=== PATIENT | female | born 1995 | race Caucasian/White ===

== ENCOUNTER → 2018-11-16 | Outpatient (CLI) | payer OTHER ==
[~2018-11-16] MED LIST: GADOBUTROL 7.5 MMOL/7.5 ML PFS ONE
== END | disposition home or self-care (01) ==
LOC: CFH 10:06
PROVIDERS: ATTEND Specialist
DX: R56.9 Unspecified convulsions (principal); R55 Syncope and collapse
CPT/HCPCS: 70553; A9585

== ENCOUNTER 2019-01-12 08:54 | Outpatient (CLI) | payer OTHER | END 2019-01-12 23:59 | disposition home or self-care (01) | LOC: CARD 08:54 | PROVIDERS: ATTEND Specialist | DX: R56.9 Unspecified convulsions (principal) | CPT/HCPCS: 95816 ==

== ENCOUNTER 2019-09-11 16:56 | Emergency (ER) | payer OTHER ==
[~2019-09-11] VITALS: Ht 162.6 cm; Wt 65.5 kg
[2019-09-11 17:17] VITALS: BP 115/56
[2019-09-11 17:18] LABS: BASOPHILS # (AUTO) 0.05 x10^3/uL (0-0.1); BASOPHILS % (AUTO) 1 % (0-1); EOSINOPHILS # (AUTO) 0.24 x10^3/uL (0-0.4); EOSINOPHILS % (AUTO) 2 % (1-7); LYMPHOCYTES # (AUTO) 2.67 x10^3/uL (1-3.4); LYMPHOCYTES % (AUTO) 24 % (22-44); MD NO; MEAN CORPUSCULAR HEMOGLOBIN 29.3 pg (27.0-34.8); MEAN CORPUSCULAR HGB CONC 33.8 g/dL (32.4-35.8); MEAN CORPUSCULAR VOLUME 86.6 fL (80-100); MEAN PLATELET VOLUME 8.8 fL (7.4-10.4); MONOCYTES # (AUTO) 0.67 x10^3/uL (0.2-0.8); MONOCYTES % (AUTO) 6 % (2-9); NEUTROPHILS # (AUTO) 7.33 x10^3/uL (1.8-6.8); NEUTROPHILS % (AUTO) 67 % (42-75); PLATELET COUNT 311 x10^3/uL (130-400); RED BLOOD COUNT 5.05 x10^6/uL (3.82-5.3); RED CELL DISTRIBUTION WIDTH 14.1 % (9.6-15.2)
--- NOTE | 2019-09-11 17:24 | NUR ---
PT PRESENTING TO ER FOR EPIGASTRIC PAIN RADITAING AROUNG TO RIGHT FLANK WITH N/V SINCE WEDNESDAY AFTER EATING CHICKEN WINGS WEDNESDAY NIGHT. CONNECTED TO MONITORING, VSS. MOM AT BEDSIDE. LABS COLLECTED. US AT BEDSIDE. PT INFORMED OF NEED FOR URINE SAMPLE. CALL LIGHT WITHIN REACH
[2019-09-11 17:31] LABS: ALANINE AMINOTRANSFERASE 15 U/L (12-78); ALBUMIN 3.5 g/dL (3.4-5.0); ANION GAP 8 mmol/L (5-15); CALCIUM 9.5 mg/dL (8.5-10.1); CHLORIDE 108 mmol/L (98-107); CREATININE 0.76 mg/dL (0.55-1.02)
--- NOTE | 2019-09-11 17:34 | NUR ---
US COMPLETED. PT UP TO RESTROOM AT THIS TIME TO OBTAIN URINE SAMPLE
[2019-09-11 17:36] LABS: ALKALINE PHOSPHATASE 44 U/L (45-117); BILIRUBIN,TOTAL 0.3 mg/dL (0.2-1.0); TOTAL PROTEIN 7.7 g/dL (6.4-8.2)
--- NOTE | 2019-09-11 17:50 | NUR ---
UA SENT TO LAB. MD AT BEDSIDE DISCUSSING RESULTS WE HAVE SO FAR.
[2019-09-11 18:07] LABS: MICROSCOPIC AUTO
[2019-09-11 18:09] LABS: CULTURE INDICATED? YES
--- NOTE | 2019-09-11 18:18 | NUR ---
ALL RESULTS BACK AT THIS TIME, CHART UP FOR RECHECK
== END 2019-09-11 18:40 | disposition home or self-care (01) ==
LOC: ED 17:56
DX: N30.00 Acute cystitis without hematuria (principal)
CPT/HCPCS: 36415; 76700; 80053; 81001; 83690; 84703; 85025; 87077; 87086; 87186; 99284

== ENCOUNTER 2020-04-23 08:50 | Emergency (ER) | payer OTHER ==
[~2020-04-23] VITALS: Ht 162.6 cm; Wt 69.1 kg
[2020-04-23 09:51] LABS: BASOPHILS % (AUTO) 1 % (0-1); EOSINOPHILS % (AUTO) 7 % (1-7); LYMPHOCYTES % (AUTO) 36 % (22-44); MEAN CORPUSCULAR HGB CONC 32.9 g/dL (32.4-35.8); MEAN PLATELET VOLUME 8.3 fL (7.4-10.4); MONOCYTES % (AUTO) 7 % (2-9); NEUTROPHILS % (AUTO) 50 % (42-75); PLATELET COUNT 295 x10^3/uL (130-400); RED BLOOD COUNT 4.51 x10^6/uL (3.82-5.3); RED CELL DISTRIBUTION WIDTH 13.3 % (9.6-15.2)
[2020-04-23 09:55] LABS: ALBUMIN 3.6 g/dL (3.4-5.0); ANION GAP 8 mmol/L (5-15); CALCIUM 8.9 mg/dL (8.5-10.1); CHLORIDE 110 mmol/L (98-107); CREATININE 0.93 mg/dL (0.55-1.02)
[2020-04-23 10:17] VITALS: BP 92/54
--- NOTE | 2020-04-23 10:17 | NUR ---
PT PRESENTS TO ED WITH C/O LEFT BREAST SWELLING X 3 DAYS, DENIES ERYTHEMA OR DISCHARGE. PT STATES SHE IS NOT LACTATING. PT IS A&O, RESPS EVEN AND UNLABORED, AWAITING LAB RESULTS AND DISPO. CALL LIGHT IN REACH, MOTHER AT BS.
[2020-04-23 10:20] LABS: MD NO
--- NOTE | 2020-04-23 11:23 | NUR ---
pt and mother given dc instructions and script, educated regarding rx for naproxen and general surgeon referral. pt is a&o, resps even and unlabored, nadn. pt ambulatory to dc desk with steady gait accompanied by mother.
== END 2020-04-23 11:24 | disposition home or self-care (01) ==
LOC: ED 10:10
DX: N63.0 Unspecified lump in unspecified breast (principal); N64.4 Mastodynia; N95.1 Menopausal and female climacteric states
CPT/HCPCS: 36415; 80048; 82040; 84703; 85025; 99284